=== PATIENT | male | born 1940 | race African-American/Black ===

== ENCOUNTER 2021-02-24 05:00 | Outpatient (REF) | payer SELFPAY ==
[2021-02-24 06:56] LABS: Hematocrit 30.8 % (42-52); Hemoglobin 9.9 g/dl (14.0-18.0); Mean Corpuscular HGB Conc 32.1 g/dl (31.0-36.0); Mean Corpuscular Hemoglobin 29.6 pg (27.0-33.0); Mean Corpuscular Volume 91.9 fL (80-98); Mean Platelet Volume 10.5 fL (9.4-12.4); NRBC Pct Auto 0.6 /100WBC (0.0-0.2); Platelet Count 305 X10*3/uL (160-400); Red Blood Count 3.35 X10*6/uL (4.60-5.80); Red Cell Distribution Width 17.2 % (11.0-16.0); White Blood Count 4.8 X10*3/uL (4.8-10.8)
[2021-02-24 07:38] LABS: Anion Gap 19 (12-20); Blood Urea Nitrogen 32 mg/dL (9-16); Calcium 9.3 mg/dL (8.4-10.2); Carbon Dioxide 16 mmol/L (22-29); Chloride 110 mmol/L (96-108); Estimated Glomerular Filt Rate 26; Glucose Random 95 mg/dL (60-115); Potassium 5.3 mmol/L (3.3-5.1); Sodium 140 mmol/L (135-145)
== END 2021-02-24 05:01 | disposition home or self-care (01) ==
LOC: HO.MMNH1L 05:00
PROVIDERS: Visit Provider Family Medicine
DX: N39.0 Urinary tract infection, site not specified (principal); E87.6 Hypokalemia; R62.7 Adult failure to thrive
CPT/HCPCS: 36415; 80048; 85027

== ENCOUNTER 2021-04-07 00:13 | Outpatient (REF) | payer SELFPAY | END 2021-04-07 00:14 | disposition home or self-care (01) | LOC: HO.MMNH3L 00:13 | PROVIDERS: Visit Provider Family Medicine | DX: Z13.89 Encounter for screening for other disorder (principal) ==